=== PATIENT | female | born 1965 | race Caucasian/White ===

== ENCOUNTER 2021-04-03 04:38 | Day surgery (SDC) | payer OTHER ==
[2021-03-30 15:17] VITALS: BMI 28.5
[2021-04-03] MEDS ORDERED: IBUPROFEN 400 MG TABLET (FP) PO PRN (07:41)
[2021-04-03] MEDS ORDERED: ACETAMINOPHEN 325 MG TABLET (FP) PO PRN (07:41)
[2021-04-03] MEDS ORDERED: oxyCODONE HCL 5 MG TABLET PO PRN (07:41)
[2021-04-03] MEDS ORDERED: MIDAZOLAM HCL 2 MG/2 ML SINGLE DOSE VIAL ONE (07:45)
[2021-04-03] MEDS ORDERED: PROPOFOL 20 ML ONE ×3 (07:45→07:46)
[2021-04-03] MEDS ORDERED: IODINE/POTASSIUM IODIDE 5%/10% 14 ML BOTTLE NR ONE (07:58)
[2021-04-03] MEDS ORDERED: FERRIC SUBSULFATE 500 ML BOTTLE TP ONE (08:00)
[2021-04-03] MEDS ORDERED: ONDANSETRON 4 MG/2 ML VIAL IVPUSH PRN (09:31)
[2021-04-03] MEDS ORDERED: LACTATED RINGERS SOLUTION 1,000 ML IV SCH (09:45)
[2021-04-03 10:44] VITALS: BP 111/67; PULSE 65; TEMP 97.8
== END 2021-04-03 10:47 | disposition home or self-care (01) ==
LOC: JASU-SURG 04:38
PROVIDERS: ATTEND Obstetrics & Gynecology
PROC: 0UBC7ZX Excision of Cervix, Via Natural or Artificial Opening, Diagnostic (ICD-10-PCS; principal; 2021-04-03 07:30)
DX: N87.0 Mild cervical dysplasia (principal); R87.810 Cervical high risk human papillomavirus (HPV) DNA test positive
CPT/HCPCS: 86850; 86900; 86901; 86922; 88305-TC; 94760